=== PATIENT | female | born 1975 | race Caucasian/White ===

== ENCOUNTER 2019-08-20 15:00 | Emergency (ER) | payer BC, OTHER ==
--- NOTE | 2019-08-20 15:30 | EDM.PDOC ---
ED HPI GENERAL MEDICAL PROBLEM - General Stated Complaint: chest pain Time Seen by Provider: 08/20/19 15:24 Source of Information: Reports: Patient History Limitations: Reports: No Limitations - History of Present Illness INITIAL COMMENTS - FREE TEXT/NARRATIVE: 44-year-old female with onset of lightheadedness and dizziness on Tuesday night. She had no discomfort at the time. He had no vision problems at this time. She had no chest pain or shortness of breath at this time. At 9 AM on , she noted tightness in her central chest that was associated with a feeling of a hard time breathing. It was gradual and came on while she was in [place]. It has been present continually since that time. She rates her discomfort as a 3/10. It is a tightness and feels like a "brick on my chest". Nothing really seems to make the pain better. Nothing really seems to make the pain worse. She has had no nausea or vomiting. She has had no cough or nasal congestion. The pain does seem to go through to her back and somewhat into her left arm. The pain does seem to worsen at times and it really seemed to be no inciting event or worsening type factors. She still feels somewhat lightheaded and dizzy but has had no feelings of near syncope. She feels somewhat tired and like it is hard for her to breathe. She was seen initially at the [facility] in [place] Dr. Batista and was sent to the emergency department for further evaluation. There are no other associated signs or symptoms. There are no other modifying factors. Onset: Other (9 AM yesterday morning, 08/19/2019.) Duration: Constant Location: Reports: Chest, Back, Upper Extremity, Left Quality: Reports: Pressure, Other (Tightness) Severity: Mild Improves with: Reports: None Worsens with: Reports: None Context: Reports: Other (While at rest as above.) Associated Symptoms: Reports: Chest Pain, Shortness of Breath Treatments TREE FELLER: Reports: Other (see below) (Nothing) Chest Pain Score (Numeric/FACES): 3 - Related Data Allergies Allergy/AdvReac Type Severity Reaction Status Date / Time No Known Allergies Allergy Verified 05/12/14 21:11 Home Meds: Home Meds Omeprazole 1 tab PO DAILY 05/12/14 [History] Ranitidine HCl [Ranitidine] 1 tab PO BEDTIME 05/12/14 [History] Venlafaxine HCl 0.5 tab PO BID 05/12/14 [History] Past Medical History Gastrointestinal History: Reports: GERD, Other (See Below) ("Digestive issues"-- she has chronic diarrhea since her cholecystectomy and she cannot tolerate certain foods secondary to causing her pain.) Genitourinary History: Reports: Renal Calculus Neurological History: Reports: Headaches, Chronic - Past Surgical History GI Surgical History: Reports: Cholecystectomy Female Surgical History: Reports: Endometrial Ablation Social & Family History - Family History Cardiac: Reports: CAD (In her grandparents later age), Hypertension (In her mother) Endocrine/Metabolic: Reports: Diabetes, type II (In her father) - Tobacco Use Smoking Status *Q: Never Smoker - Alcohol Use Alcohol Use History: No - Living Situation & Occupation 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.) ED ROS GENERAL - Review of Systems Review Of Systems: See Below Constitutional: Reports: Fatigue HEENT: Reports: No Symptoms Respiratory: Reports: Shortness of Breath Cardiovascular: Reports: Chest Pain GI/Abdominal: Reports: No Symptoms : Reports: No Symptoms Musculoskeletal: Reports: Arm Pain (Some left arm pain), Back Pain (Pain seems to go through to her back) Skin: Reports: No Symptoms Neurological: Reports: Dizziness (Mild) Hematologic/Lymphatic: Reports: No Symptoms Immunologic: Reports: No Symptoms ED EXAM, GENERAL - Physical Exam Exam: See Below Exam Limited By: No Limitations General Appearance: Alert, WD/WN, No Apparent Distress Eye Exam: Bilateral Eye: EOMI, Normal Inspection, PERRL Ears: Normal External Exam, Hearing Grossly Normal Ear Exam: Bilateral Ear: Auricle Normal Nose: Normal Inspection, Normal Mucosa, No Blood Throat/Mouth: Normal Inspection, Normal Lips, Normal Oropharynx, Normal Voice, No Airway Compromise Head: Atraumatic, Normocephalic Neck: Normal Inspection, Supple, Non-Tender, Full Range of Motion Respiratory/Chest: No Respiratory Distress, Lungs Clear, Normal Breath Sounds, No Accessory Muscle Use, Chest Non-Tender Cardiovascular: Normal Peripheral Pulses, Regular Rate, Rhythm, No Edema, No JVD , No Murmur Peripheral Pulses: 2+: Radial (L), Radial (R), Dorsalis Pedis (L), Dorsalis Pedis (R) GI/Abdominal: Normal Bowel Sounds, Soft, No Distention, No Mass, Tender (Mild tenderness in her epigastrium.) Back Exam: Normal Inspection, Full Range of Motion Extremities: Normal Inspection, Normal Range of Motion, Non-Tender, No Pedal Edema, Normal Capillary Refill Neurological: Alert, Oriented, CN II-XII Intact, Normal Cognition, No Motor/ Sensory Deficits Skin Exam: Warm, Dry, Intact, Normal Color, No Rash EKG INTERPRETATION EKG Date: 08/20/19 Time: 15:09 Rhythm: NSR Rate (Beats/Min): 81 [place]: Normal P-Wave: Present QRS: Normal ST-T: Other (Mild nonspecific ST-T changes.) QT: Normal Comparison: No Change (From EKG performed at 2:25 PM at [facility] in [place].) Course - Vital Signs Last Recorded V/S: Last Vital Signs Temp 36.4 C 08/20/19 15:00 Pulse 90 08/20/19 15:00 Resp 18 08/20/19 15:00 BP 139/76 08/20/19 15:00 Pulse Ox 100 08/20/19 15:00 - Orders/Labs/Meds Orders: Active Orders 24 hr Category Date Time Status EKG Documentation Completion [RC] ASDIRECTED Care 08/20/19 15:44 Active Chest 1V Frontal [CR] Stat Exams 08/20/19 15:53 Taken Sodium Chloride 0.9% [Saline Flush] Med 08/20/19 15:41 Active 10 ml FLUSH ASDIRECTED PRN Peripheral IV Insertion Adult [OM.PC] Routine Oth 08/20/19 15:41 Ordered EKG 12 Lead [EK] Routine Ther 08/20/19 15:41 Ordered Medication Orders Sodium Chloride (Saline Flush) 10 ml FLUSH ASDIRECTED PRN PRN Reason: Keep Vein Open Labs: Laboratory Tests 08/20/19 08/20/19 08/20/19 Range/Units 15:20 15:20 15:20 WBC 4.8 (4.5-12.0) X10-3/uL RBC 4.77 (3.23-5.20) x10(6)uL Hgb 14.5 (11.5-15.5) g/dL Hct 43.2 (30.0-51.3) % MCV 90.5 (80-96) fL MCH 30.4 (27.7-33.6) pg MCHC 33.6 (32.2-35.4) g/dL RDW 12.3 (11.5-15.5) % Plt Count 210 (125-369) X10(3)uL MPV 8.2 (7.4-10.4) fL Neut % (Auto) 63.5 (46-82) % Lymph % (Auto) 27.9 (13-37) % Ford % (Auto) 4.5 (4-12) % Eos % (Auto) 3 (1.0-5.0) % Baso % (Auto) 1 (0-2) % Neut # (Auto) 3.1 (1.6-8.3) # Lymph # (Auto) 1.3 (0.6-5.0) # Ford # (Auto) 0.2 (0.0-1.3) # Eos # (Auto) 0.2 (0.0-0.8) # Baso # (Auto) 0.0 (0.0-0.2) # PT 9.9 (8.7-11.1) INR 1.02 (0.89-1.13) APTT 24.5 (24.4-33.2) SECONDS D-Dimer, Quantitative < 0.19 (0.0-0.59) mg/LFEU Sodium 142 (135-145) mmol/L Potassium 3.6 (3.5-5.3) mmol/L Chloride 105 (100-110) mmol/L Carbon Dioxide 27 (21-32) mmol/L BUN 13 (7-18) mg/dL Creatinine 0.6 (0.55-1.02) mg/dL Est Cr Clr Drug Dosing TNP Estimated GFR (MDRD) > 60 (>60) BUN/Creatinine Ratio 21.7 H (9-20) Glucose 88 (80-116) mg/dL Calcium 9.1 (8.6-10.2) mg/dL Total Bilirubin 0.5 (0.1-1.3) mg/dL AST 18 (5-25) IU/L ALT 17 (12-36) U/L Alkaline Phosphatase 53 L (56-112) IU/L Troponin I (<0.017-0.056) ng/mL Total Protein 6.7 (6.0-8.0) g/dL Albumin 3.9 (3.5-5.2) g/dL Globulin 2.8 g/dL Albumin/Globulin Ratio 1.4 Amylase 65 (25-115) U/L 08/20/19 08/20/19 Range/Units 15:20 17:30 WBC (4.5-12.0) X10-3/uL RBC (3.23-5.20) x10(6)uL Hgb (11.5-15.5) g/dL Hct (30.0-51.3) % MCV (80-96) fL MCH (27.7-33.6) pg MCHC (32.2-35.4) g/dL RDW (11.5-15.5) % Plt Count (125-369) X10(3)uL MPV (7.4-10.4) fL Neut % (Auto) (46-82) % Lymph % (Auto) (13-37) % Ford % (Auto) (4-12) % Eos % (Auto) (1.0-5.0) % Baso % (Auto) (0-2) % Neut # (Auto) (1.6-8.3) # Lymph # (Auto) (0.6-5.0) # Ford # (Auto) (0.0-1.3) # Eos # (Auto) (0.0-0.8) # Baso # (Auto) (0.0-0.2) # PT (8.7-11.1) INR (0.89-1.13) APTT (24.4-33.2) SECONDS D-Dimer, Quantitative (0.0-0.59) mg/LFEU Sodium (135-145) mmol/L Potassium (3.5-5.3) mmol/L Chloride (100-110) mmol/L Carbon Dioxide (21-32) mmol/L BUN (7-18) mg/dL Creatinine (0.55-1.02) mg/dL Est Cr Clr Drug Dosing Estimated GFR (MDRD) (>60) BUN/Creatinine Ratio (9-20) Glucose (80-116) mg/dL Calcium (8.6-10.2) mg/dL Total Bilirubin (0.1-1.3) mg/dL AST (5-25) IU/L ALT (12-36) U/L Alkaline Phosphatase (56-112) IU/L Troponin I < 0.017 L < 0.017 L (<0.017-0.056) ng/mL Total Protein (6.0-8.0) g/dL Albumin (3.5-5.2) g/dL Globulin g/dL Albumin/Globulin Ratio Amylase (25-115) U/L Meds: Medications Generic Name Dose Route Start Last Admin Trade Name Freq PRN Reason Stop Dose Admin Sodium Chloride 10 ml 08/20/19 15:41 Saline Flush FLUSH ASDIRECTED PRN Keep Vein Open Discontinued Medications Generic Name Dose Route Start Last Admin Trade Name Freq PRN Reason Stop Dose Admin Aspirin 324 mg 08/20/19 15:45 08/20/19 16:01 Aspirin PO 08/20/19 15:46 324 mg ONETIME ONE Administration - Radiology Interpretation Free Text/Narrative:: Chest x-ray PA and lateral shows no acute disease per the radiologist. - Re-Assessments/Exams Free Text/Narrative Re-Assessment/Exam: 08/20/19 16:52: Patient remains with the tightness in her chest, left shoulder and back as before. It is unchanged. Her laboratory tests were reassuringly normal including a negative d-dimer and a normal troponin. Her chest x-ray is unremarkable. She has had some abdominal discomfort (she often has abdominal discomfort, however). I am unsure of the cause of her pain with a troponin being negative after greater than 24 hours of chest pain, I feel that this is unlikely a cardiac related problem. We will, however, repeat her troponin at 5: 30 pm today. 08/20/19 17:53: Repeat troponin was negative. With a negative troponin 32 hours after onset of pain and with continual chest pain during that entire 32 hours and now a negative repeat troponin, I feel that OK has been ruled out and he'll that it is very unlikely that this chest pain has any cardiac cause. I have recommended that the patient follow-up with her primary provider as she may need further outpatient testing and she should probably follow-up with her inserter operator. She should drink plenty of fluids. She may take ibuprofen and Tylenol for her pain. Precautions and reasons for return to the emergency department were discussed with the patient and her . Departure - Departure Time of Disposition: 17:55 Disposition: Home, Self-Care 01 Condition: Good Clinical Impression: Ruled out for myocardial infarction Chest pain Qualifiers: Chest pain type: unspecified Qualified Code(s): R07.9 - Chest pain, unspecified Instructions: Nonspecific Chest Pain, [id number] Referrals: Rober Batista MD [Primary Care Provider] - Additional Instructions: Your blood tests were reassuringly normal. Your EKG was normal. Chest x-ray was normal. A repeat heart enzyme test was normal as well. This effectively rules out a heart attack. I feel that it is very unlikely that this pain is related to her heart as we discussed. You may take Tylenol and ibuprofen as needed for pain. You should increase your fluid intake. Follow-up with your primary doctor as you may need further outpatient testing. You should also left with your inserter operator as this chest pain may be related to some of your digestive issues. Back to the emergency department for marked increase in pain, vomiting, worse breathing, coughing up blood or any other concerning sign or symptom - My Orders Last 24 Hours: My Active Orders 08/20/19 15:41 Sodium Chloride 0.9% [Saline Flush] 10 ml FLUSH ASDIRECTED PRN Peripheral IV Insertion Adult [OM.PC] Routine EKG 12 Lead [EK] Routine 08/20/19 15:44 EKG Documentation Completion [RC] ASDIRECTED 08/20/19 15:53 Chest 1V Frontal [CR] Stat - Assessment/Plan Last 24 Hours: My Active Orders 08/20/19 15:41 Sodium Chloride 0.9% [Saline Flush] 10 ml FLUSH ASDIRECTED PRN Peripheral IV Insertion Adult [OM.PC] Routine EKG 12 Lead [EK] Routine 08/20/19 15:44 EKG Documentation Completion [RC] ASDIRECTED 08/20/19 15:53 Chest 1V Frontal [CR] Stat
[2019-08-20] MEDS ORDERED: Sodium Chloride 0.9% 10 ML Syringe FLUSH PRN (15:41)
[2019-08-20] MEDS ORDERED: Aspirin 81 MG Tab.Chew PO ONE (15:45)
--- NOTE | 2019-08-21 11:53 | CR ---
INDICATION: Difficulty breathing, chest pain, question pneumothorax. CHEST: A single PA expiration view of the chest revealed no evidence of pneumothorax or definite active infiltrate or effusion. Bilateral nipple shadows are noted at the lung bases. A mild dextroconcave scoliosis is noted at the lower thoracic spine. Heart and mediastinum were unremarkable. No consolidating pneumonia or effusion was seen. IMPRESSION: No acute process. MTDD
== END 2019-08-20 18:25 | disposition home or self-care (01) ==
LOC: FB.ED 15:00
DX: R07.89 Other chest pain (principal); K21.9 Gastro-esophageal reflux disease without esophagitis; Z79.899 Other long term (current) drug therapy
CPT/HCPCS: 36415; 71045; 80053; 82150; 84484; 85025; 85379; 85610; 85730; 93005; 99285-25; A9270-GY

== ENCOUNTER 2020-04-27 16:02 | Emergency (ER) | payer OTHER ==
[2020-04-27] MEDS ORDERED: Acetaminophen/HYDROcodone 325-5 MG Tab PO ONE ×2 (16:03→16:37)
[2020-04-27] MEDS ORDERED: Alum Hydroxide/Mag Hydroxide 15 ML, Lidocaine 2% 15 ML PO ONE ×2 (16:24)
--- NOTE | 2020-04-27 16:30 | EDM.PDOC ---
ED HPI GENERAL MEDICAL PROBLEM - General Chief Complaint: Gastrointestinal Problem Stated Complaint: ABD PAIN Time Seen by Provider: 04/27/20 16:15 Source of Information: Reports: Patient, Old Records, RN History Limitations: Reports: No Limitations - History of Present Illness INITIAL COMMENTS - FREE TEXT/NARRATIVE: 44 yo female presents with a few day hx of progressive LUQ abdominal pain. Had mild nausea at its worst, not now. No change in bowel habits. No fever. Has been followed by GI for some chronic issues that they are currently treating with pancreas enzymes with some benefit. Nothing seems to change her pain, except for pressing on area(worsens). Onset: Gradual Onset Date: 04/24/20 Duration: Day(s):, Getting Worse Location: Reports: Abdomen (LUQ) Quality: Reports: Ache Severity: Moderate Improves with: Reports: None Worsens with: Reports: Other (pressing on area/time) Context: Reports: Other (See HPI) Associated Symptoms: Reports: Nausea/Vomiting (no vomiting). Denies: Cough, Fever/Chills, Rash Treatments EAR SPECIALIST: Reports: Acetaminophen (no change with this) left mid abd and radiating to back Pain Score (Numeric/FACES): 7 - Related Data Allergies Allergy/AdvReac Type Severity Reaction Status Date / Time No Known Allergies Allergy Verified 05/12/14 21:11 Home Meds: Home Meds Omeprazole 1 tab PO DAILY 05/12/14 [History] Ranitidine HCl [Ranitidine] 1 tab PO BEDTIME 05/12/14 [History] Venlafaxine HCl 0.5 tab PO BID 05/12/14 [History] Past Medical History Gastrointestinal History: Reports: GERD, Other (See Below) ("Digestive iss ues"--she has chronic diarrhea since her cholecystectomy and she cannot tolerate certain foods secondary to causing her pain.) Genitourinary History: Reports: Renal Calculus Neurological History: Reports: Headaches, Chronic - Past Surgical History GI Surgical History: Reports: Cholecystectomy Female Surgical History: Reports: Endometrial Ablation Social & Family History - Family History Family Medical History: Noncontributory Cardiac: Reports: CAD (In her grandparents later age), Hypertension (In her mother) Endocrine/Metabolic: Reports: Diabetes, type II (In her father) - Caffeine Use Caffeine Use: Reports: Coffee - Living Situation & Occupation 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 Denies: Black Stool, Bloody Stool, Constipation, Distension, Flatus, Hematemesis, Hematochezia, Melena, Vomiting : Reports: No Symptoms Musculoskeletal: Reports: No Symptoms Skin: Reports: No Symptoms Neurological: Reports: No Symptoms Psychiatric: Reports: No Symptoms ED EXAM, GI/ABD - Physical Exam Exam: See Below Exam Limited By: No Limitations General Appearance: Alert, WD/WN, No Apparent Distress Eyes: Bilateral: Normal Appearance Ears: Normal External Exam, Normal Canal, Hearing Grossly Normal Throat/Mouth: Normal Inspection, Normal Lips, Normal Oropharynx, Normal Voice, No Airway Compromise Head: Atraumatic, Normocephalic Neck: Normal Inspection Respiratory/Chest: No Respiratory Distress, Lungs Clear, Normal Breath Sounds, No Accessory Muscle Use Cardiovascular: Regular Rate, Rhythm, No Edema GI/Abdominal Exam: Soft, No Distention, Tender (LUQ). No: Non-Tender, Distended, Guarding, Rigid, Rebound, Splenomegaly Back Exam: Normal Inspection. No: CVA Tenderness (R), CVA Tenderness (L) Extremities: Normal Inspection, Normal Range of Motion, Non-Tender, No Pedal Edema Neurological: Alert, Oriented, CN II-XII Intact, Normal Cognition, No Motor/Sensory Deficits Psychiatric: Normal Affect, Normal Mood Skin Exam: Warm, Dry, Intact, Normal Color, No Rash Course - Vital Signs Last Recorded V/S: Last Vital Signs Temp 36.7 C 04/27/20 16:02 Pulse 92 04/27/20 16:02 Resp 17 04/27/20 16:02 BP 132/82 04/27/20 16:02 Pulse Ox 100 04/27/20 16:02 - Orders/Labs/Meds Labs: Laboratory Tests 04/27/20 04/27/20 Range/Units 16:15 16:50 WBC 5.2 (4.5-12.0) X10-3/uL RBC 4.63 (3.23-5.20) x10(6)uL Hgb 13.5 (11.5-15.5) g/dL Hct 42.1 (30.0-51.3) % MCV 90.8 (80-96) fL MCH 29.2 (27.7-33.6) pg MCHC 32.2 (32.2-35.4) g/dL RDW 12.6 (11.5-15.5) % Plt Count 195 (125-369) X10(3)uL Sodium 140 (135-145) mmol/L Potassium 3.8 (3.5-5.3) mmol/L Chloride 104 (100-110) mmol/L Carbon Dioxide 27 (21-32) mmol/L BUN 11 (7-18) mg/dL Creatinine 0.8 (0.55-1.02) mg/dL Est Cr Clr Drug Dosing 75.44 mL/min Estimated GFR (MDRD) > 60 (>60) BUN/Creatinine Ratio 13.8 (9-20) Glucose 93 (80-116) mg/dL Calcium 8.9 (8.6-10.2) mg/dL Total Bilirubin 0.3 (0.1-1.3) mg/dL AST 18 (5-25) IU/L ALT 13 D (12-36) U/L Alkaline Phosphatase 63 (56-112) IU/L Total Protein 6.6 (6.0-8.0) g/dL Albumin 3.9 (3.5-5.2) g/dL Globulin 2.7 g/dL Albumin/Globulin Ratio 1.4 Amylase 85 (25-115) U/L Meds: Medications Discontinued Medications Generic Name Dose Route Start Last Admin Trade Name Freq PRN Reason Stop Dose Admin Hydrocodone Bitart/Acetaminophen 1 tab 04/27/20 16:37 04/27/20 16:46 [place] 325-5 Mg PO 04/27/20 16:38 1 tab ONETIME ONE Administration Al Hydroxide/Mg Hydroxide 15 0 ml 04/27/20 16:24 04/27/20 16:29 ml/ Lidocaine HCl 15 ml PO 04/27/20 16:25 30 ml ONETIME ONE Administration Famotidine 40 mg 04/27/20 17:13 04/27/20 17:17 Pepcid PO 04/27/20 17:14 40 mg ONETIME ONE Administration - Re-Assessments/Exams Free Text/Narrative Re-Assessment/Exam: 04/27/20 16:36 No change with GI cocktail. Free Text/Narrative Re-Assessment/Exam: 04/27/20 17:31 Partial relief with [place] x 1 04/27/20 17:31 Unable to provide a stool specimen. Departure - Departure Time of Disposition: 17:40 Disposition: Home, Self-Care 01 Condition: Fair Clinical Impression: LUQ abdominal pain - Discharge Information *PRESCRIPTION DRUG MONITORING PROGRAM REVIEWED*: No *COPY OF PRESCRIPTION DRUG MONITORING REPORT IN PATIENT ROMERO: No Instructions: Abdominal Pain, Adult, [id number] Referrals: Abrahan Browning MD [Primary Care Provider] - Forms: ED Department Discharge Additional Instructions: Take famotidine 40 mg every evening. Add Peptobismol as needed for continued symptoms. Use either [place] OR acetaminophen for pain relief. Avoid ibuprofen, Aleve, Aspirin, carbonated beverages, caffiene or alcohol. Recheck with your provider in a couple days. Sepsis Event Note (ED) - Focused Exam Vital Signs: Vital Signs Temp Pulse Resp BP Pulse Ox 04/27/20 16:02 36.7 C 92 17 132/82 100
[2020-04-27] MEDS ORDERED: Famotidine 20 MG Tab PO ONE (17:13)
== END 2020-04-27 17:59 | disposition home or self-care (01) ==
LOC: FB.ED 16:02
DX: R10.12 Left upper quadrant pain (principal); K21.9 Gastro-esophageal reflux disease without esophagitis; Z79.899 Other long term (current) drug therapy
CPT/HCPCS: 36415; 80053; 82150; 85027; 99284; A9270

== ENCOUNTER 2021-11-02 08:26 | Emergency (ER) | payer OTHER ==
[2021-11-02] MEDS ORDERED: Metoclopramide 10 MG/2 ML SDV IVPUSH ONE (09:02)
[2021-11-02] MEDS ORDERED: Ketorolac 30 MG/ML SDV IVPUSH ONE (09:02)
[2021-11-02] MEDS ORDERED: Sodium Chloride 0.9% 1,000 ML IV ONE ×2 (09:02→09:08)
--- NOTE | 2021-11-02 09:13 | EDM.PDOC ---
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 nothing to eat or drink today, no V, no f/c/d, feels dizzy if she moves comes to ED with 14 yo daughter and has not had COVID vax has some left sided pain that is chronic, had it worked up in [place] for 2 wks in March, went back in Jul and Sep, no dx has been to [facility] for w/u, also no dx PCP in [place], new PCP in Sep after last one 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: MIKAL husain Left Arm Pain Score (Numeric/FACES): 2 - Related Data Allergies Allergy/AdvReac Type Severity Reaction Status Date / Time No Known Allergies Allergy Verified 11/02/21 08:46 Home Meds: Home Meds Omeprazole 1 tab PO DAILY 05/12/14 [History] Ranitidine HCl [Ranitidine] 1 tab PO BEDTIME 05/12/14 [History] Venlafaxine HCl 0.5 tab PO BID 05/12/14 [History] Acetaminophen/HYDROcodone [Junior 325-5 MG] 1 - 2 tab PO Q6H PRN #10 tab 04/27/20 [Rx] Famotidine 40 mg PO BEDTIME #30 tablet 04/27/20 [Rx] Meclizine HCl 25 mg PO TID #21 tablet 11/02/21 [Rx] Metoclopramide HCl 10 mg PO TID #21 tablet 11/02/21 [Rx] Naltrexone HCl 100 gm PO DAILY 11/02/21 [History] Sulfamethoxazole/Trimethoprim [Sulfamethoxazole-Tmp Ds Tablet] 1 each PO BID #6 tablet 11/02/21 [Rx] Past Medical History Gastrointestinal History: Reports: GERD, Other (See Below) Genitourinary History: Reports: Renal Calculus Neurological History: Reports: Headaches, Chronic - Past Surgical History GI Surgical History: Reports: Cholecystectomy Female Surgical History: Reports: Endometrial Ablation Social & Family History - Family History Family Medical History: No Pertinent Family History Cardiac: Reports: CAD, Hypertension Endocrine/Metabolic: Reports: Diabetes, type II - Tobacco Use Tobacco Use Status *Q: Unknown Ever Used Tobacco - Caffeine Use Caffeine Use: Reports: None - Living Situation & Occupation Occupation: Employed (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 Denies: Constipation, Diarrhea : Reports: No Symptoms Musculoskeletal: Reports: No Symptoms Skin: Reports: No Symptoms Neurological: Reports: Dizziness, Other ("entire left side hurts") Psychiatric: Reports: No Symptoms Hematologic/Lymphatic: Reports: No Symptoms Immunologic: Reports: No Symptoms ED EXAM, GENERAL - Physical Exam Exam: See Below Exam Limited By: No Limitations General Appearance: Alert, WD/WN, Other (lying on ride side) Eye Exam: Bilateral Eye: Normal Inspection Ears: Hearing Grossly Normal Throat/Mouth: Normal Voice, No Airway Compromise Head: Atraumatic, Normocephalic Neck: Normal Inspection, Supple, Non-Tender, Full Range of Motion. No: Lymphadenopathy (R), Lymphadenopathy (L) Respiratory/Chest: No Respiratory Distress, Lungs Clear, Normal Breath Sounds, Chest Non-Tender Cardiovascular: Regular Rate, Rhythm, No Edema, No Murmur GI/Abdominal: Normal Bowel Sounds, Soft, No Distention, Other (perhaps mild tender at left flank, nl BS, no distention) Back Exam: Normal Inspection, Full Range of Motion. No: CVA Tenderness (R), CVA Tenderness (L) Extremities: Normal Inspection, Non-Tender, No Pedal Edema Neurological: Alert, Oriented, CN II-XII Intact, Normal Cognition, No Motor/Sensory Deficits Psychiatric: Anxious Skin Exam: Warm, Dry, Intact, Normal Color, No Rash, Other (dec'd turgor) Lymphatic: No Adenopathy Course - Vital Signs Last Recorded V/S: Last Vital Signs Temp 36.4 C 11/02/21 08:30 Pulse 98 11/02/21 08:30 Resp 18 11/02/21 08:30 BP 123/78 11/02/21 08:30 Pulse Ox 100 11/02/21 08:30 Orthostatic Blood Pressure [ 116/76 Standing] Orthostatic Blood Pressure [ 109/62 Sitting] Orthostatic Blood Pressure [ 111/67 Supine] - Orders/Labs/Meds Orders: Active Orders 24 hr Category Date Time Status Orthostatic Vital Signs [RC] ASDIRECTED Care 11/02/21 10:34 Active CORTISOL, URINARY FREE Routine Lab 11/02/21 12:00 Ordered CULTURE URINE [RM] Stat Lab 11/02/21 09:45 Received METANEPHRINES, FRAC, QN, 24-HR Routine Lab 11/02/21 12:00 Ordered Labs: Laboratory Tests 11/02/21 11/02/21 11/02/21 Range/Units 09:05 09:16 09:16 WBC 4.8 (3.0-10.3) x10-3/uL RBC 4.47 (3.60-5.20) x10(6)uL Hgb 13.6 (11.4-15.5) g/dL Hct 40.5 (34.2-48.2) % MCV 90.5 (76.7-100.5) fL MCH 30.3 (23.9-33.9) pg MCHC 33.5 (31.9-34.8) g/dL RDW 12.8 (12.3-16.5) % Plt Count 186 (151-488) x10(3)uL MPV 7.8 (7.1-12.4) fL Neut % (Auto) 71.0 (30.8-76.2) % Lymph % (Auto) 19.3 (18.4-52.1) % Davison % (Auto) 6.4 (4.4-15.7) % Eos % (Auto) 2.5 (0.6-8.1) % Baso % (Auto) 0.8 (0.2-1.5) % Neut # (Auto) 3.4 (1.5-6.3) x10-3/uL Lymph # (Auto) 0.9 L (1.0-4.4) x10-3/uL Davison # (Auto) 0.3 (0.3-1.0) x10-3/uL Eos # (Auto) 0.1 (0.0-0.8) x10-3/uL Baso # (Auto) 0.0 (0.0-0.1) x10-3/uL POC VBG pH (7.32-7.43) pH Units POC VBG pCO2 (41-51) mmHg POC VBG HCO3 (22-29) mmol/L VBG Base Excess (-2 - 3+) mmol/L O2 Delivery Device Oxygen Flow Rate LPM Sodium 141 (135-145) mmol/L Potassium 3.7 (3.5-5.3) mmol/L Chloride 105 (100-110) mmol/L Carbon Dioxide 26 (21-32) mmol/L BUN 13 (7-18) mg/dL Creatinine 0.7 (0.55-1.02) mg/dL Est Cr Clr Drug Dosing 88.13 mL/min Estimated GFR (MDRD) > 60 (>60) BUN/Creatinine Ratio 18.6 (9-20) Glucose 94 (80-116) mg/dL Lactic Acid (0.4-2.0) mmol/L Calcium 8.4 L (8.6-10.2) mg/dL Total Bilirubin 0.5 (0.1-1.3) mg/dL AST 15 D (5-25) IU/L ALT 15 D (12-36) U/L Alkaline Phosphatase 50 L (56-112) IU/L Troponin I (4.0-60.3) pg/mL C-Reactive Protein (0.5-0.9) mg/dL Total Protein 6.5 (6.0-8.0) g/dL Albumin 3.7 (3.5-5.2) g/dL Globulin 2.8 g/dL Albumin/Globulin Ratio 1.3 Lipase (73-393) U/L TSH, Ultra Sensitive (0.36-3.74) IU/mL Urine Color (YELLOW) Urine Appearance (CLEAR) Urine pH (5.0-6.5) Ur Specific [place] (1.010-1.025) Urine Protein (NEGATIVE) mg/dL Urine Glucose (UA) (NORMAL) mg/dL Urine Ketones (NEGATIVE) mg/dL Urine Occult Blood (NEGATIVE) Urine Nitrite (NEGATIVE) Urine Bilirubin (NEGATIVE) Urine Urobilinogen (NEGATIVE) mg/dL Ur Leukocyte Esterase (NEGATIVE) Urine RBC (0-5) Urine WBC (0-5) Ur Squamous Epith Cells (NS,R,O) Amorphous Sediment Urine Bacteria (NS) SARS-CoV-2 RNA (GEENA) Negative (NEGATIVE) 11/02/21 11/02/21 11/02/21 Range/Units 09:16 09:16 09:16 WBC (3.0-10.3) x10-3/uL RBC (3.60-5.20) x10(6)uL Hgb (11.4-15.5) g/dL Hct (34.2-48.2) % MCV (76.7-100.5) fL MCH (23.9-33.9) pg MCHC (31.9-34.8) g/dL RDW (12.3-16.5) % Plt Count (151-488) x10(3)uL MPV (7.1-12.4) fL Neut % (Auto) (30.8-76.2) % Lymph % (Auto) (18.4-52.1) % Davison % (Auto) (4.4-15.7) % Eos % (Auto) (0.6-8.1) % Baso % (Auto) (0.2-1.5) % Neut # (Auto) (1.5-6.3) x10-3/uL Lymph # (Auto) (1.0-4.4) x10-3/uL Davison # (Auto) (0.3-1.0) x10-3/uL Eos # (Auto) (0.0-0.8) x10-3/uL Baso # (Auto) (0.0-0.1) x10-3/uL POC VBG pH (7.32-7.43) pH Units POC VBG pCO2 (41-51) mmHg POC VBG HCO3 (22-29) mmol/L VBG Base Excess (-2 - 3+) mmol/L O2 Delivery Device Oxygen Flow Rate LPM Sodium (135-145) mmol/L Potassium (3.5-5.3) mmol/L Chloride (100-110) mmol/L Carbon Dioxide (21-32) mmol/L BUN (7-18) mg/dL Creatinine (0.55-1.02) mg/dL Est Cr Clr Drug Dosing mL/min Estimated GFR (MDRD) (>60) BUN/Creatinine Ratio (9-20) Glucose (80-116) mg/dL Lactic Acid < 0.3 L (0.4-2.0) mmol/L Calcium (8.6-10.2) mg/dL Total Bilirubin (0.1-1.3) mg/dL AST (5-25) IU/L ALT (12-36) U/L Alkaline Phosphatase (56-112) IU/L Troponin I < 4.0 L (4.0-60.3) pg/mL C-Reactive Protein < 0.2 L (0.5-0.9) mg/dL Total Protein (6.0-8.0) g/dL Albumin (3.5-5.2) g/dL Globulin g/dL Albumin/Globulin Ratio Lipase 151 (73-393) U/L TSH, Ultra Sensitive (0.36-3.74) IU/mL Urine Color (YELLOW) Urine Appearance (CLEAR) Urine pH (5.0-6.5) Ur Specific [place] (1.010-1.025) Urine Protein (NEGATIVE) mg/dL Urine Glucose (UA) (NORMAL) mg/dL Urine Ketones (NEGATIVE) mg/dL Urine Occult Blood (NEGATIVE) Urine Nitrite (NEGATIVE) Urine Bilirubin (NEGATIVE) Urine Urobilinogen (NEGATIVE) mg/dL Ur Leukocyte Esterase (NEGATIVE) Urine RBC (0-5) Urine WBC (0-5) Ur Squamous Epith Cells (NS,R,O) Amorphous Sediment Urine Bacteria (NS) SARS-CoV-2 RNA (GEENA) (NEGATIVE) 11/02/21 11/02/21 11/02/21 Range/Units 09:16 09:28 09:45 WBC (3.0-10.3) x10-3/uL RBC (3.60-5.20) x10(6)uL Hgb (11.4-15.5) g/dL Hct (34.2-48.2) % MCV (76.7-100.5) fL MCH (23.9-33.9) pg MCHC (31.9-34.8) g/dL RDW (12.3-16.5) % Plt Count (151-488) x10(3)uL MPV (7.1-12.4) fL Neut % (Auto) (30.8-76.2) % Lymph % (Auto) (18.4-52.1) % Davison % (Auto) (4.4-15.7) % Eos % (Auto) (0.6-8.1) % Baso % (Auto) (0.2-1.5) % Neut # (Auto) (1.5-6.3) x10-3/uL Lymph # (Auto) (1.0-4.4) x10-3/uL Davison # (Auto) (0.3-1.0) x10-3/uL Eos # (Auto) (0.0-0.8) x10-3/uL Baso # (Auto) (0.0-0.1) x10-3/uL POC VBG pH 7.40 (7.32-7.43) pH Units POC VBG pCO2 40 L (41-51) mmHg POC VBG HCO3 25 (22-29) mmol/L VBG Base Excess 0 (-2 - 3+) mmol/L O2 Delivery Device Room air Oxygen Flow Rate 0 LPM Sodium (135-145) mmol/L Potassium (3.5-5.3) mmol/L Chloride (100-110) mmol/L Carbon Dioxide (21-32) mmol/L BUN (7-18) mg/dL Creatinine (0.55-1.02) mg/dL Est Cr Clr Drug Dosing mL/min Estimated GFR (MDRD) (>60) BUN/Creatinine Ratio (9-20) Glucose (80-116) mg/dL Lactic Acid (0.4-2.0) mmol/L Calcium (8.6-10.2) mg/dL Total Bilirubin (0.1-1.3) mg/dL AST (5-25) IU/L ALT (12-36) U/L Alkaline Phosphatase (56-112) IU/L Troponin I (4.0-60.3) pg/mL C-Reactive Protein (0.5-0.9) mg/dL Total Protein (6.0-8.0) g/dL Albumin (3.5-5.2) g/dL Globulin g/dL Albumin/Globulin Ratio Lipase (73-393) U/L TSH, Ultra Sensitive 1.36 (0.36-3.74) IU/mL Urine Color Yellow (YELLOW) Urine Appearance Cloudy (CLEAR) Urine pH 8.0 H (5.0-6.5) Ur Specific [place] 1.015 (1.010-1.025) Urine Protein Negative (NEGATIVE) mg/dL Urine Glucose (UA) Normal (NORMAL) mg/dL Urine Ketones 15 H (NEGATIVE) mg/dL Urine Occult Blood Negative (NEGATIVE) Urine Nitrite Negative (NEGATIVE) Urine Bilirubin Negative (NEGATIVE) Urine Urobilinogen Normal (NEGATIVE) mg/dL Ur Leukocyte Esterase Negative (NEGATIVE) Urine RBC 0-5 (0-5) Urine WBC 5-10 H (0-5) Ur Squamous Epith Cells Few H (NS,R,O) Amorphous Sediment Many Urine Bacteria Many H (NS) SARS-CoV-2 RNA (GEENA) (NEGATIVE) Meds: Medications Discontinued Medications Generic Name Dose Route Start Last Admin Trade Name Freq PRN Reason Stop Dose Admin Ceftriaxone Sodium 1 gm 11/02/21 10:32 11/02/21 10:38 Ceftriaxone 2 Gm Vial IVPUSH 11/02/21 10:33 1 gm ONETIME ONE Administration Sodium Chloride 1,000 mls @ 999 mls/hr 11/02/21 09:02 11/02/21 09:04 Normal Saline IV 11/02/21 10:02 999 mls/hr .BOLUS ONE Administration Sodium Chloride 1,000 mls @ 999 mls/hr 11/02/21 09:08 11/02/21 10:06 Normal Saline IV 11/02/21 10:08 999 mls/hr .BOLUS ONE Administration Ketorolac Tromethamine 30 mg 11/02/21 09:02 11/02/21 09:08 Ketorolac 30 Mg/Ml Sdv IVPUSH 11/02/21 09:03 30 mg ONETIME ONE Administration Methylprednisolone Sodium Succinate 125 mg 11/02/21 10:33 11/02/21 10:38 Methylprednisolone Sodium Succinate 125 Mg/2 Ml Sdv IVPUSH 11/02/21 10:34 125 mg ONETIME ONE Administration Metoclopramide HCl 10 mg 11/02/21 09:02 11/02/21 09:09 Metoclopramide 10 Mg/2 Ml Sdv IVPUSH 11/02/21 09:03 10 mg ONETIME ONE Administration Ondansetron HCl 4 mg 11/02/21 10:33 11/02/21 10:44 Ondansetron 4 Mg/2 Ml Sdv IVPUSH 11/02/21 10:34 4 mg ONETIME ONE Administration - Re-Assessments/Exams Free Text/Narrative Re-Assessment/Exam: 11/02/21 12:21 labs reviewed, BP unchanged supine to standing, HR inc'd 106 to 119 supine to standing for unclear reason, had already received 2 liters IVF TSH neg, cannot exclude adrenal disorder altho would expect inc'd BP for pheo 24 hour urine collection for metanephrines and free cortisol to begin in 48 hours (to allow one dose Solu-Medrol to clear) chronic left sided pain is present altho presumably unrelated to dizziness and nausea, seems aggravated by her dizziness and nausea no head or abd imaging today as those have been done in past few months at [place] pt has high anxiety level altho it is unclear how much this may be contributing to her sxs and how much may result from her sxs pt and agree to plan, remained at bedside all morning Departure - Departure Time of Disposition: 12:02 Disposition: Home, Self-Care 01 Condition: Good Clinical Impression: Dizziness, Nausea, Dehydration, Ketonuria, Sinus tachycardia, UTI, Urinary tract infectious disease - Discharge Information *PRESCRIPTION DRUG MONITORING PROGRAM REVIEWED*: Not Applicable *COPY OF PRESCRIPTION DRUG MONITORING REPORT IN PATIENT ROMERO: Not Applicable Prescriptions: Meclizine HCl 25 mg PO TID #21 tablet Metoclopramide HCl 10 mg PO TID #21 tablet Sulfamethoxazole/Trimethoprim [Sulfamethoxazole-Tmp Ds Tablet] 1 each PO BID #6 tablet Instructions: Dizziness, Nausea, Adult, Dehydration, Adult, Urinary Tract Infection, Adult Forms: ED Department Discharge, ED Return to Work/School Form Additional Instructions: For nausea, take metoclopramide 10 mg 1 tab 3 times a day for 2 days, longer if needed. For dizziness, take meclizine 25 mg 1 tab 3 times a day for 2 days, longer if needed. For bladder infection, take sulfa 1 tab 2 times a day for 3 days beginning tomorrow. To maintain hydration, increase fluids. Rest today. See Dr Franks in 1-2 days for further recommendations. In 2 days, begin a 24-hour urine collection, return to lab when complete. This will allow for additional hormone testing which sometimes can contribute to your symptoms, including the mildly increased heart rate. The results will be sent to Dr Franks. May return to work in 2 days if you are feeling better. Return to Emergency Department if you are feeling worse. Sepsis Event Note (ED) - Evaluation Sepsis Screening Result: No Definite Risk - Focused Exam Vital Signs: Vital Signs Temp Pulse Resp BP Pulse Ox 11/02/21 08:30 36.4 C 98 18 123/78 100 - My Orders Last 24 Hours: My Active Orders 11/02/21 09:45 CULTURE URINE [RM] Stat 11/02/21 10:34 Orthostatic Vital Signs [RC] ASDIRECTED 11/02/21 12:00 CORTISOL, URINARY FREE Routine METANEPHRINES, FRAC, QN, 24-HR Routine - Assessment/Plan Last 24 Hours: My Active Orders 11/02/21 09:45 CULTURE URINE [RM] Stat 11/02/21 10:34 Orthostatic Vital Signs [RC] ASDIRECTED 11/02/21 12:00 CORTISOL, URINARY FREE Routine METANEPHRINES, FRAC, QN, 24-HR Routine
[2021-11-02 09:33] LABS: BASE EXCESS VENOUS,POC 0 mmol/L (-2 - 3+); PCO2 VENOUS,POC 40 mmHg (41-51)
[2021-11-02] MEDS ORDERED: cefTRIAXone 2 GM Vial IVPUSH ONE (10:32)
[2021-11-02] MEDS ORDERED: Ondansetron 4 MG/2 ML SDV IVPUSH ONE (10:33)
[2021-11-02] MEDS ORDERED: methylPREDNISolone Sodium Succinate 125 MG/2 ML SDV IVPUSH ONE (10:33)
== END 2021-11-02 12:30 | disposition home or self-care (01) ==
LOC: FB.ED 08:26
DX: N39.0 Urinary tract infection, site not specified (principal); R42 Dizziness and giddiness; R11.0 Nausea; R82.4 Acetonuria; E86.0 Dehydration; R00.0 Tachycardia, unspecified; K21.9 Gastro-esophageal reflux disease without esophagitis; Z79.899 Other long term (current) drug therapy; Z20.822 Contact with and (suspected) exposure to COVID-19
CPT/HCPCS: 36415; 80053; 81001; 83605; 83690; 84443; 84484; 85025; 86140; 87086; 87635; 96374; 96375; 99284; J0696; J1885; J2405; J2765; J2930; J7030; U0002